=== PATIENT | female | born 1945 | race Caucasian/White ===

== ENCOUNTER → 2024-05-14 | Outpatient (CLI) | payer MEDICARE | END | disposition home or self-care (01) | LOC: RAH 13:06 | PROVIDERS: ATTEND Family Medicine | DX: M81.0 Age-related osteoporosis without current pathological fracture (principal) | CPT/HCPCS: 77080 ==

== ENCOUNTER → 2024-08-13 | Outpatient (CLI) | payer OTHER ==
--- NOTE | 2024-08-13 15:12 | HMCIMG ---
CT CORONARY CALCIFICATION SCORING: Anatomic images were reviewed. The calcium score is being generated and reported separately. This report is for the visualized anatomy only. Visualized portions of the lungs are clear. Hilar and mediastinal structures appear normal. Osseous structures are unremarkable. Impression: 1. Negative noncardiac anatomic findings. 2. The calcium score is 64.6 consistent with a mild degree of calcified plaque. This is 60 is percentile for a patient this age. CT was performed with one or more following dose reduction techniques: automated exposure control, adjustment of the mA and kv according to patient's size, or use of a iterative reconstruction technique.
== END | disposition home or self-care (01) ==
LOC: RAH 14:32
PROVIDERS: ATTEND Internal Medicine Cardiovascular Disease
DX: Z13.6 Encounter for screening for cardiovascular disorders (principal)
CPT/HCPCS: 75571

== ENCOUNTER → 2024-08-28 | Outpatient (CLI) | payer MEDICARE ==
--- NOTE | 2024-09-01 07:46 | HMCSR ---
APPROVED REPORT EXAM: Two-dimensional and M-mode echocardiogram with Doppler and color Doppler. INDICATION ICD: R06.02 Shortness of breath 2D Dimensions RVDd3.9 cmLVEF(%)52.7 (>50%)LVED Vol(simp.)91.0 mL IVSd1.0 (0.7-1.1cm)FS(%)26 %LVES Vol(simp.)39.0 mL LVDd3.5 (3.8-5.6cm)Ao Root(2D)2.9 (2.0-3.7cm)LVEF(%, simp.)57 % PWd1.0 (0.7-1.1cm)LVOT diam1.9 (1.8-2.4cm)LA ESV INDEX (BP)28.23 mL/m2 LVDs2.6 (2.5-4.0cm)IVC diam1.2 cm Aortic Valve AoV Vmax1.5 m/Aaron Peak GR9.5 mmHgLVOT Vmax1.0 m/s AoV VTI0.4 mAo Mean GR5.5 mmHgLVOT VTI0.25 m JUVENAL (VMAX)2.0 cm2AVA (VTI) 2.0 cm2 Mitral Valve MV E Vmax77.8 cm/sDECEL Fuhz699 ms MV A Vmax98.3 cm/sP 1/2 T90 ms E/A ratio0.8MVA (PHT)2.4 cm2 MR Max PG135 mmHg TDI E/E' Qfkygy01.3E/E' Hbqoxqs54.8 Pulmonary Valve PV Vmax0.8 m/sPV VTI0.19 mPV Mean GR1 mmHg PV Peak GR2.6 mmHgPI End Luciana. Ceferino 1.0 cm/s Tricuspid Valve TR Vmax2.3 m/sRAP (EST) 3 piMpMWMC42.1 mmHg TR Peak GR22.1 mmHg Left Ventricle Left ventricular cavity size is normal. There is normal LV segmental wall motion. There is normal lef t ventricular wall thickness. LVEF is 55-60%. No left ventricle thrombus noted on this study. Grade 1 diastolic dysfunction Right Ventricle The right ventricle is normal size. The right ventricular systolic function is normal. Atria The left atrium size is normal. The right atrium is borderline dilated. Aortic Valve Aortic valve is trileaflet. Aortic valve leaflets are sclerotic but open well. Trace aortic regurgita tion. There is no aortic valvular stenosis. Mitral Valve The mitral valve is mildly thickened. Mitral regurgitation is trace to mild. There is no mitral valve stenosis. Tricuspid Valve The tricuspid valve leaflets appear normal. There is mild tricuspid regurgitation. Pulmonic Valve Pulmonic valve is not well visualized. There is mild valvular regurgitation. Great Vessels The aortic root is normal in size. The IVC is normal in size and collapses >50% with inspiration. Pericardium Pericardium appears mildly thickened. Conclusion Left ventricular cavity size is normal. LVEF is 55-60%. Grade 1 diastolic dysfunction The right ventricle is normal size. The left atrium size is normal. Aortic valve is trileaflet. Aortic valve leaflets are sclerotic but open well. Trace aortic regurgitation. The mitral valve is mildly thickened. Mitral regurgitation is trace to mild. There is no mitral valve stenosis. There is mild tricuspid regurgitation. The aortic root is normal in size. The IVC is normal in size and collapses >50% with inspiration. Pericardium appears mildly thickened.
== END | disposition home or self-care (01) ==
LOC: SHCH 09:40
PROVIDERS: ATTEND Internal Medicine Cardiovascular Disease
DX: I08.8 Other rheumatic multiple valve diseases (principal); I31.39 Other pericardial effusion (noninflammatory); R06.02 Shortness of breath
CPT/HCPCS: 93306

== ENCOUNTER → 2024-10-06 | Outpatient (CLI) | payer MEDICARE ==
[2024-10-06 16:34] LABS: CREATININE 0.8 mg/dL (0.5-1.0); POTASSIUM 3.9 mmol/L (3.5-5.1)
== END | disposition home or self-care (01) ==
LOC: LAB 11:43
PROVIDERS: ATTEND Internal Medicine Cardiovascular Disease
DX: R00.2 Palpitations (principal)
CPT/HCPCS: 36415; 80048